=== PATIENT | female | born 1975 | race Caucasian/White ===

== ENCOUNTER → 2016-11-29 | Outpatient (CLI) | payer BC ==
[~2016-11-29] MED LIST: ARMO250T5 PO; ASPI-390 PO; BCPILLS PO; BIOT1CAP8 PO; CHOL1TAB46 PO; DIME1CAP2 PO; GADAVIST IV PRN; MONT1TAB3 PO; NAPR1TAB9 PO; PROB1TAB16 PO; SIME80CH PO
--- NOTE | 2016-11-29 19:43 | DIAGNOSTIC IMAGING REPORT ---
BRAIN COMBO FOR MS CLINICAL HISTORY: Multiple sclerosis. COMPARISON STUDY: MRI of the brain December 22, 2015. TECHNIQUE: Utilizing a 1.5 Marybeth magnet and dedicated coil, multiplanar, multi echo imaging of the brain was performed pre and postcontrast administration according to the multiple sclerosis protocol. Injection of 9 cc of Gadavist IV was uneventful. FINDINGS: No areas of restricted diffusion are present. No acute intracranial hemorrhage, midline shift or mass effect is present. Brain volume is normal. Ventricular system is normal. The basilar cisterns are patent. There are no extra-axial collections. Flow-voids for the major intracranial vessels are present. Multiple T2 hyperintense foci within the white matter are again noted including foci within the brainstem. Several these have diminished in conspicuity since MRI of December 22, 2015, including a 6 mm focus within the posterior left temporal lobe shown on image 13 of 22. A few periventricular foci have also diminished since prior exam. No new demyelinating plaques identified on this examination. Calvarial signal is maintained. There is no enhancement to suggest active demyelination. Enhancement of the plaques shown on prior MRI of December 22, 2015 has resolved. There are 2 mucous retention cysts within the right maxilla sinus. There is a mucous retention cyst within left maxillary sinus. Orbits are unremarkable. IMPRESSION: 1. Interval improvement since exam of December 22, 2015 with decrease in size of several demyelinating plaques with interval resolution of plaque enhancement. No enhancement to suggest active demyelination on this exam. No new plaques identified. 2. No acute intracranial findings. Electronically signed by: Orestes Wood M.D. 11/29/2016 7:42 PM Dictated Date/Time: 11/29/2016 7:33 PM
== END | disposition home or self-care (01) ==
LOC: C.MRI 17:34
PROVIDERS: ATTEND Psychiatry & Neurology Neurology
DX: G35 Multiple sclerosis (principal)

== ENCOUNTER → 2016-12-25 | Outpatient (CLI) | payer BC ==
--- NOTE | 2016-12-25 15:05 | DIAGNOSTIC IMAGING REPORT ---
MRI CERVICAL SPINE COMBO CLINICAL HISTORY: Local sclerosis, arm weakness, numbness, dysphasia. TECHNIQUE: Sagittal and axial T1, T2 and STIR images were obtained. Imaging was performed before and after the administration of 8.5 cc of intravenous Gadavist. COMPARISON STUDY: Outside study dated 10/08/2015 There are no suspicious areas of marrow replacement. No intrinsic cervical cord lesions are visualized. C2-3: There is no evidence of disc bulge or focal herniation. There is no spinal or foraminal stenosis. C3-4: There is no evidence of disc bulge or focal herniation. There is no spinal or foraminal stenosis. C4-5: There is a mild circumferential disc bulge. There is no significant spinal or foraminal stenosis C5-6 :There is a mild circumferential disc bulge. There is no significant spinal stenosis. There is minor left-sided foraminal narrowing C6-7: There is no evidence of disc bulge or focal herniation. There is no evidence of spinal or foraminal stenosis. C7-T1: There is no evidence of disc bulge or focal herniation. There is no evidence of spinal or foraminal stenosis. Post gadolinium images reveal no pathologic enhancement There is a 5 mm focus of increased T2 signal within the posterior inferior ammon IMPRESSION: 1. No intrinsic cervical cord lesions. 2. 5 mm focus of increased T2 signal within the posterior inferior ammon 3. Mild spondylitic changes with mild disc bulges the C4-5 and C5-C6 levels. Mild left-sided foraminal narrowing the C5-6 level. Electronically signed by: Richie Sal M.D. 12/25/2016 3:04 PM Dictated Date/Time: 12/25/2016 2:58 PM
== END | disposition home or self-care (01) ==
LOC: C.MRI 13:21
PROVIDERS: ATTEND Psychiatry & Neurology Neurology
DX: G35 Multiple sclerosis (principal); R29.898 Other symptoms and signs involving the musculoskeletal system; R13.10 Dysphagia, unspecified; R94.09 Abnormal results of other function studies of central nervous system

== ENCOUNTER → 2017-01-06 | Outpatient (CLI) | payer BC ==
[~2017-01-06] MED LIST changes: -GADAVIST IV PRN
--- NOTE | 2017-01-06 12:22 | DIAGNOSTIC IMAGING REPORT ---
VIDEO SWALLOW HISTORY: Dysphagia R13.10 Dysphagia, [id number] TECHNIQUE: Video fluoroscopic evaluation of swallowing was performed in the AP and lateral projections by the speech pathology staff. The patient is fed nectar-thick and thin liquid barium, a barium coated wafer, and barium pudding. FLUOROSCOPY TIME: 1.9 minutes. COMPARISON STUDY: None. FINDINGS: There is normal hyoid excursion and epiglottic deflection. No significant penetration or aspiration identified. Swallowing function is within normal limits. IMPRESSION: 1. No aspiration identified. 2. Please see the speech pathologist report for detailed findings and recommendations. Electronically signed by: Az Moon M.D. 01/06/2017 12:21 PM Dictated Date/Time: 01/06/2017 12:20 PM
--- NOTE | 2017-01-06 14:06 | SWALLOWING EVALUATION ---
REFERRING SPEECH PATHOLOGIST: n/a HISTORY: This 41 year-old female was referred for a VFSS at [facility] in order to address c/o intermittent globus sensation. The patient has a PMH significant for MS. Currently the patient's diet level is regular. PROCEDURE: The patient was seen in the Radiology Department of [facility] for the VFSS. Cursory examination of the oral cavity revealed adequate dentition. Movement of the articulators was WNL. The patient stood for the procedure and was viewed in both the Anterior-Posterior (A-P) and Lateral planes. Volitional phonation exercises completed in the A-P plane revealed bilateral vocal fold movement and vocal intensity within functional limits. In the lateral plane, the patient was given the following boluses: 1 tsp. thin liquid barium x 2, single swallow thin liquid barium self-presented from a cup, sequential swallows of thin liquid barium self-presented from a cup, 1 tsp. nectar-thick liquid barium, single swallow nectar-thick liquid barium self-presented from a cup, 1 tsp. barium pudding, and 1 club cracker with barium pudding. The patient was then repositioned into the A-P plane and given 1 tsp. barium pudding. RESULTS: Oral Stage: No labial escape. Cohesive bolus between tongue and palate during oral bolus hold exercise. Timely and efficient mastication. Brisk tongue movement for bolus transfer. Complete oral clearance after the swallow. Initiation of the pharyngeal swallow when the bolus head was at the posterior angle of the ramus. The oral stage of the swallow was WNL. Pharyngeal Stage: No bolus between soft palate and pharyngeal wall. Laryngeal elevation, anterior hyoid excursion, epiglottic inversion, and laryngeal vestibular closure were all complete. Complete pharyngeal contraction as seen in the AP plane and complete distention and duration of PES opening. No contrast between tongue base and pharyngeal wall. Complete pharyngeal clearance after the swallow. There was no penetration or aspiration. The pharyngeal stage of the swallow was WNL. Esophageal Stage: Complete clearance of pudding bolus transiting the esophagus. SUMMARY/RECOMMENDATIONS: This patient presents with normal oral-pharyngeal swallowing mechanics. The following is recommended: 1. Regular as tolerated 2. Pt already schedule for EGD with GI services on 01/13/17. 3. Patient would benefit from outpatient [facility] services for voice therapy d/t c/o mild dysphonia. 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 A summary of the results and recommendations was discussed with the patient immediately following the study. Thank you for referral of this patient. Please contact me at if any additional information is needed.
== END | disposition home or self-care (01) ==
LOC: C.RAD 11:06
PROVIDERS: ATTEND Internal Medicine
DX: R13.10 Dysphagia, unspecified (principal)

== ENCOUNTER → 2017-01-13 | Day surgery (SDC) | payer BC ==
[2017-01-03 09:09] VITALS: Ht 159.4 cm; Wt 81.8 kg
[~2017-01-13] VITALS: Ht 159.4 cm; Wt 81.8 kg
[~2017-01-13] MED LIST changes: +FENTANYL CITRATE INJ 50 MCG/1 ML 2 ML VIAL ONE; +LIDOCAINE HCL 2% 2 ML VIAL (20MG/ML) ONE; +ONDANSETRON INJ 2 MG/ML 2 ML VIAL ONE; +PROPOFOL IV EMULSION 10 MG/ML 20 ML VIAL IV ONE; +SODIUM CHLORIDE 0.9% 500ML 500 ML IV ONE
--- NOTE | 2017-01-13 10:36 | Endo History and Physical ---
History & Physical Date of Service: Jan 13, 2017. Chief Complaint: Dysphagia Referring Physician: Dr. Weber History of Present Illness 41 yo CF who presents for EGD secondary to dysphagia. Past Surgical History Hx Cardiac Surgery: No Hx Internal Defibrillator: No Hx Pacemaker: No Hx Abdominal Surgery: No Hx of Implantable Prosthesis: No Hx Post-Op Nausea and Vomiting: No Hx Cancer Surgery: No Hx Thoracic Surgery: No Hx Orthopedic: No Hx Urinary Tract Surgery: No Family History Colon CA Social History Smoking Status: Never Smoker Hx Substance Use: No Hx Alcohol Use: Yes (1 DRINK WEEKLY) Allergies Coded Allergies: No Known Allergies (Unverified , 01/03/17) Current Medications Reported Home Medications Medications Dose Route/Sig Max Daily Dose Days Date Category Aleve (Naproxen) 220 Mg Tab 440 Mg PO DAILY 01/13/17 Reported Vitamin D3 (Cholecalciferol) 5,000 Unit Tab 1 Tab PO QAM 01/03/17 Reported Excedrin Migraine (Brtbmln-Poggmaehzcqcp-Hhuzjjrs) 1 Tab Tab 1 Tab PO DAILY PRN 01/03/17 Reported Gas-X (Simethicone) 80 Mg Chw 1 Tab PO DAILY PRN 01/03/17 Reported Biotin 1 Mg Cap 1 Cap PO QAM 01/03/17 Reported Probiotic (Probiotic Product) 1 Tab Tab 1 Tab PO QAM 01/03/17 Reported Singulair (Montelukast Sodium) 10 Mg Tab 10 Mg PO QAM 01/03/17 Reported Control Pills (Miscellaneous) Tab 1 Tab PO QAM 01/03/17 Reported Nuvigil (Armodafinil) 250 Mg Tab 1 Tab PO QAM 01/03/17 Reported Tecfidera (Dimethyl Fumarate) 240 Mg Cap 1 Cap PO BID 01/03/17 Reported Vital Signs Weight (Kilograms): 81.82 Height (Feet): 5 Height (Inches): 2.75 Physical Exam General Appearance: WD/WN, no apparent distress Respiratory/Chest: Auscultation: breath sounds normal Cardiovascular: Heart Auscultation: RRR Abdomen: Bowel Sounds: normal Inspection & Palpation: soft, non-distended, no tenderness, guarding & rebound Assessment and Plan Assessment: 41 yo CF who presents for EGD secondary to dysphagia. Plan: Proceed with EGD.
--- NOTE | 2017-01-13 11:16 | Discharge Instructions ---
Endoscopy Patient Instructions Date / Procedure(s) Performed Jan 13, 2017. EGD Allergy Information Coded Allergies: No Known Allergies (Unverified , 01/03/17) Discharge Date / Findings Jan 13, 2017. Gastritis s/p biopsies Medication Instructions OK to resume all medications today as prescribed Reported Home Medications Medications Dose Route/Sig Max Daily Dose Days Date Category Aleve (Naproxen) 220 Mg Tab 440 Mg PO DAILY 01/13/17 Reported Vitamin D3 (Cholecalciferol) 5,000 Unit Tab 1 Tab PO QAM 01/03/17 Reported Excedrin Migraine ([place]-Dynwlhypgdknc-Xbwtgjei) 1 Tab Tab 1 Tab PO DAILY PRN 01/03/17 Reported Gas-X (Simethicone) 80 Mg Chw 1 Tab PO DAILY PRN 01/03/17 Reported Biotin 1 Mg Cap 1 Cap PO QAM 01/03/17 Reported Probiotic (Probiotic Product) 1 Tab Tab 1 Tab PO QAM 01/03/17 Reported Singulair (Montelukast Sodium) 10 Mg Tab 10 Mg PO QAM 01/03/17 Reported Control Pills (Miscellaneous) Tab 1 Tab PO QAM 01/03/17 Reported Nuvigil (Armodafinil) 250 Mg Tab 1 Tab PO QAM 01/03/17 Reported Tecfidera (Dimethyl Fumarate) 240 Mg Cap 1 Cap PO BID 01/03/17 Reported Provider Instructions Activity Restrictions - No exercising or heavy lifting for 24 hours. - Do not drink alcohol the day of the procedure. - Do not drive a car or operate machinery until the day after the procedure. - Do not make any important decisions or sign important papers in 24 hours after the procedure. Following Day: - Return to full activity which may include returning to work/school. Diet Start your diet with liquids and light foods (jello, soup, juice, toast). Then eat your usual diet if not nauseated. Treatment For Common After Affects For mild abdominal pain, bloating, or excessive gas: - Rest - Eat lightly - Lie on right side Recommend Esophageal manometry for further evaluation of symptoms. Follow-Up Information Follow-up with Dr. Guilherme Feng as scheduled Anesthesia Information What You Should Know You have had a procedure that required some medicine to reduce anxiety and discomfort. This treatment is called moderate sedation. After receiving the treatment, you may be sleepy, but you will be able to breathe on your own. The effects of the treatment may last for several hours. Follow these instructions along with Activity/Diet recommendations noted above: * Do NOT do anything where dizziness or clumsiness would be dangerous. * Rest quietly at home today, then you can be up and about tomorrow. * Have a responsible person stay with you the rest of today. * You may have had an I.V. today. If so, you may take the dressing off later today. Recommendations Call your doctor if: * Trouble breathing * Continuous vomiting for more than 24 hours * Temperature above 101 degrees * Severe abdominal pain or bloating * Pain not relieved by pain medicine ordered * There is increased drainage or redness from any incision * A large amount of rectal bleeding greater than 2-3 tablespoons. (If you had a polyp/s removed or have hemorrhoids, a small amount of blood - from the rectum is to be expected.) * You have any unanswered questions or concerns. IN THE EVENT OF A SERIOUS EMERGENCY, GO TO THE NEAREST EMERGENCY ROOM Your discharge instructions were prepared by provider Jamaal Hazel. Patient Instructions Signature Page [place] [place] Patient (or Guardian) Signature/Date: I have read and understand the instructions given to me by my caregivers. Caregiver/RN/Doctor Signature/Date: The above-named patient and/or guardian has received patient instructions on this date. + Original Patient Signature Page (only) stays with chart. Please make copy for patient.
--- NOTE | 2017-01-13 11:22 | GI REPORT ---
Procedure Date: 01/13/2017 11:01 AM Procedure: Upper GI endoscopy Indications: Dysphagia Medicines: Monitored Anesthesia Care Complications: No immediate complications. Estimated Blood Loss: Estimated blood loss: none. Procedure: Pre-Anesthesia Assessment: - Prior to the procedure, a History and Physical was performed, and patient medications and allergies were reviewed. The patient's tolerance of previous anesthesia was also reviewed. The risks and benefits of the procedure and the sedation options and risks were discussed with the patient. All questions were answered, and informed consent was obtained. Prior Anticoagulants: The patient has taken no previous anticoagulant or antiplatelet agents. ASA Grade Assessment: II - A patient with mild systemic disease. After reviewing the risks and benefits, the patient was deemed in satisfactory condition to undergo the procedure. After obtaining informed consent, the endoscope was passed under direct vision. Throughout the procedure, the patient's blood pressure, pulse, and oxygen saturations were monitored continuously. The scope was introduced through the mouth, and advanced to the second part of duodenum. The upper GI endoscopy was accomplished without difficulty. The patient tolerated the procedure well. Findings: The esophagus was normal. Localized mild inflammation characterized by erythema was found in the gastric antrum. Biopsies were taken with a cold forceps for histology. The examined duodenum was normal. Impression: - Normal esophagus. - Gastritis. Biopsied. - Normal examined duodenum. Recommendation: - Resume previous diet. - Continue present medications. - Await pathology results. - Return to primary care physician as previously scheduled. - Perform routine esophageal manometry at appointment to be scheduled. Jamaal Hazel DO 01/13/2017 11:22:37 AM This report has been signed electronically. Note Initiated On: 01/13/2017 11:01 AM I attest to the content of the Intraoperative Record and orders documented therein, exceptions below
--- NOTE | 2017-01-13 11:26 | Anesthesiology Progress Note ---
Anesthesia Post Op Note Date & Time Jan 13, 2017 at 11:26 Vital Signs Pain Intensity: 0 Vital Signs Past 12 Hours Date Time Temp Pulse Resp B/P Pulse Ox O2 Delivery O2 Flow Rate FiO2 01/13/17 11:09 85 16 130/79 97 Room Air 01/13/17 10:43 37 77 20 138/74 99 Room Air Notes Mental Status: alert / awake / arousable, participated in evaluation Pt Amnestic to Procedure: Yes Nausea / Vomiting: adequately controlled Pain: adequately controlled Airway Patency, RR, SpO2: stable & adequate BP & HR: stable & adequate Hydration State: stable & adequate Anesthetic Complications: no major complications apparent
[2017-01-13 11:39] VITALS: BP 131/77; PULSE 73; O2SAT 98
== END | disposition home or self-care (01) ==
LOC: C.GI 10:05
PROVIDERS: ATTEND Internal Medicine
DX: R13.10 Dysphagia, unspecified (principal); K29.50 Unspecified chronic gastritis without bleeding; E66.9 Obesity, unspecified; Z68.32 Body mass index [BMI] 32.0-32.9, adult; Z79.3 Long term (current) use of hormonal contraceptives; Z80.0 Family history of malignant neoplasm of digestive organs